=== PATIENT | female | born 1970 | race American Indian/Alaskan Native ===

== ENCOUNTER 2018-01-13 21:32 | Emergency (ER) | payer OTHER ==
[2018-01-13] MEDS ORDERED: ASPIRIN PO ONE (21:45)
[2018-01-13 22:01] LABS: Basophils # (Auto) 0.1 K/mm3 (0.0-0.1); Eosinophils # (Auto) 0.1 K/mm3 (0.0-0.4); Eosinophils % (Auto) 0.9 % (0.0-4.3); Hematocrit 40.2 % (30.3-42.9); Hemoglobin 13.7 gm/dl (10.1-14.3); Lymphocytes # (Auto) 2.7 K/mm3 (1.2-5.4); Mean Corpuscular HGB Conc 34 % (30-34); Mean Corpuscular Hemoglobin 28 pg (28-32); Mean Corpuscular Volume 81 fl (79-97); Monocytes # (Auto) 0.7 K/mm3 (0.0-0.8); Monocytes % (Auto) 8.9 % (0.0-7.3); Platelet Count 371 K/mm3 (140-440); Red Blood Count 4.98 M/mm3 (3.65-5.03); Red Cell Distribution Width 14.7 % (13.2-15.2)
[2018-01-13 22:18] LABS: BUN/Creatinine Ratio 14; Blood Urea Nitrogen 14 mg/dL (7-17); Calcium 9.8 mg/dL (8.4-10.2); Hemolysis Index 11
--- NOTE | 2018-01-13 22:47 | XRay Report ---
FINAL REPORT PROCEDURE: Chest. TECHNIQUE: PA and lateral views. HISTORY: Chest pain, shortness of breath. COMPARISON: No prior studies are available for comparison. FINDINGS: The heart and mediastinum appear normal. The lungs are clear and well expanded. There are no pleural effusions. The soft tissues and regional skeleton are unremarkable. IMPRESSION: Normal study.
[2018-01-14] MEDS ORDERED: NACL 0.9% 1000 ML 1,000 ML IV ONE (00:04)
[2018-01-14] MEDS ORDERED: SOLU-Medrol IV ONE (00:04)
[2018-01-14] MEDS ORDERED: ROBITUSSIN AC PO ONE (00:04)
[2018-01-14] MEDS ORDERED: DUONEB *Not for PRN Use IH ONE (00:04)
--- NOTE | 2018-01-14 00:07 | Emergency Department Report ---
ED Chest Pain HPI - General Chief Complaint: Chest Pain Stated Complaint: SOB Time Seen by Provider: 01/13/18 23:55 Source: patient Mode of arrival: Ambulatory Limitations: No Limitations - History of Present Illness Initial Comments: 47-year-old female presents to the emergency department with complaint of some midsternal chest pain with radiation towards the back that started earlier today. Patient is also dealing with a 2 week history of some intermittent shortness of breath, a mixed dry and productive cough and sinus pressure. She saw her primary care physician when this all started, Dr. Clancy. She has a past medical history of asthma, GERD, hypertension, elevated cholesterol. Patient tried her inhaler and some aspirin today for symptoms without much relief. No recent travel or sick contacts at home. She denies any family history of early cardiac disease or cardiac events. - Related Data Previous Rx's Medication Instructions Recorded Last Taken Type Benzonatate [Tessalon Perle] 100 mg PO TID PRN #30 capsule 04/16/13 Unknown Rx Hydrochlorothiazide 25 mg PO DAILY #60 tablet 04/16/13 Unknown Rx Albuterol Sulfate [Ventolin HFA] 2 puff IH Q4H PRN #1 hfa.aer.ad 01/14/18 Unknown Rx guaiFENesin/CODEINE [Robitussin AC] 5 ml PO Q6H PRN #100 ml 01/14/18 Unknown Rx predniSONE [Deltasone] 20 mg PO BID #10 tab 01/14/18 Unknown Rx Allergies Allergy/AdvReac Type Severity Reaction Status Date / Time No Known Allergies Allergy Verified 04/15/13 23:25 Heart Score - HEART Score History: Slightly suspicious EKG: Normal Age: 45-65 Risk factors: 1-2 risk factors Troponin: < normal limit HEART Score: 2 - Critical Actions Critical Actions: 0-3 pts:0.9-1.7%risk of adverse cardiac event.Candidate for discharge ED Review of Systems ROS: Stated complaint: SOB Other details as noted in HPI Comment: All other systems reviewed and negative Constitutional: denies: chills, fever Eyes: denies: eye pain, eye discharge, vision change ENT: denies: ear pain, throat pain Respiratory: cough, shortness of breath, wheezing Cardiovascular: chest pain. denies: edema Gastrointestinal: denies: abdominal pain, nausea, diarrhea Genitourinary: denies: urgency, dysuria, discharge Musculoskeletal: denies: back pain, joint swelling, arthralgia Skin: denies: rash, lesions Neurological: denies: headache, weakness, paresthesias ED Past Medical Hx - Past Medical History Hx Hypertension: Yes Hx GERD: Yes Hx Asthma: Yes Additional medical history: Sciatica,elevated cholesterol - Surgical History Additional Surgical History: Tubal ligation - Social History Smoking Status: Never Smoker Substance Use Type: Alcohol - Medications Home Medications: Home Medications Medication Instructions Recorded Confirmed Last Taken Type Benzonatate [Tessalon Perle] 100 mg PO TID PRN #30 capsule 04/16/13 Unknown Rx Hydrochlorothiazide 25 mg PO DAILY #60 tablet 04/16/13 Unknown Rx Albuterol Sulfate [Ventolin HFA] 2 puff IH Q4H PRN #1 hfa.aer.ad 01/14/18 Unknown Rx guaiFENesin/CODEINE [Robitussin AC] 5 ml PO Q6H PRN #100 ml 01/14/18 Unknown Rx predniSONE [Deltasone] 20 mg PO BID #10 tab 01/14/18 Unknown Rx ED Physical Exam - General Limitations: No Limitations - Other Other exam information: GENERAL: The patient is well-developed well-nourished. HENT: Normocephalic. Atraumatic. Patient has moist mucous membranes. EYES: Extraocular motions are intact. Pupils equal reactive to light bilaterally. NECK: Supple. Trachea is midline. CHEST/LUNGS: There is mild wheezing throughout the chest. There is a wheezing bronchospastic cough heard during examination. No tachypnea or accessory muscle use. There is no respiratory distress noted. HEART/CARDIOVASCULAR: Regular. There is very mild tachycardia. There is no murmur. ABDOMEN: Abdomen is soft, nontender. Patient has normal bowel sounds. There is no abdominal distention. SKIN: Skin is warm and dry. NEURO: The patient is awake, alert, and oriented. The patient is cooperative. The patient has no focal neurologic deficits. The patient has normal speech. MUSCULOSKELETAL: There is no tenderness or deformity. There is no limitation range of motion. There is no evidence of acute injury. ED Course Vital Signs 01/13/18 01/13/18 01/14/18 21:40 23:56 00:02 Temperature 98 F Pulse Rate 116 H 86 Pulse Rate [ Right Lower Lobe] Respiratory 18 18 17 Rate Respiratory Rate [Right Lower Lobe] Blood Pressure 115/80 O2 Sat by Pulse 100 100 Oximetry 01/14/18 01/14/18 01/14/18 00:15 00:16 00:31 Temperature Pulse Rate 78 78 75 Pulse Rate [ Right Lower Lobe] Respiratory 18 11 L 16 Rate Respiratory Rate [Right Lower Lobe] Blood Pressure 95/72 95/72 95/72 O2 Sat by Pulse 100 100 99 Oximetry 01/14/18 01/14/18 01/14/18 00:45 00:54 01:01 Temperature Pulse Rate 70 67 Pulse Rate [ 62 Right Lower Lobe] Respiratory 26 H 21 Rate Respiratory 18 Rate [Right Lower Lobe] Blood Pressure 95/72 131/68 O2 Sat by Pulse 98 98 Oximetry 01/14/18 01/14/18 01/14/18 01:15 01:30 01:45 Temperature Pulse Rate 67 66 66 Pulse Rate [ Right Lower Lobe] Respiratory 22 24 15 Rate Respiratory Rate [Right Lower Lobe] Blood Pressure 131/68 129/63 129/63 O2 Sat by Pulse 94 98 98 Oximetry JUANA score - Juana Score Age > 65: (0) No Aspirin use within the Past 7 Days: (1) Yes 3 or more CAD Risk Factors: (0) No 2 or more Angina events in past 24 hrs: (1) Yes (if pain is considered angina) Known CAD with more than 50% Stenosis: (0) No Elevated Cardiac Markers: (0) No ST Deviation Greater than 0.5mm: (0) No JUANA Score: 2 ED Medical Decision Making - Lab Data Result diagrams: 01/13/18 21:46 01/13/18 21:46 - EKG Data -: EKG Interpreted by De EKG shows normal: sinus rhythm, axis, intervals, QRS complexes, ST-T waves Rate: normal - EKG Data When compared to previous EKG there are: previous EKG unavailable Interpretation: normal EKG - Radiology Data Radiology results: image reviewed interpreted by me: Chest x-ray does not show any acute process. There are no pleural effusions, obvious pneumonia and there is no pneumothorax. - Medical Decision Making Patient presents with a two-week history of some wheezing, coughing, congestion and a one-day history of some chest discomfort. EKG does not show any signs of ST elevation [place] or dysrhythmia. Chest x-ray does not show any pneumonia, pleural effusions, pneumothorax, focal consolidation or any other acute process. Patient's labs have been unremarkable including negative troponins 2 and a negative d-dimer. There is no leukocytosis, electrolyte abnormalities, renal insufficiency or glucose abnormalities. The patient does have some bronchospasm but does not appear to be in any respiratory distress. She was given a dose of steroids, Robitussin-AC for her cough and a breathing treatment. She was reevaluated multiple times over multiple hours and says she is feeling improved. There is no further chest discomfort and the wheezing has resolved. For all these reasons the patient appears safe for discharge home at this time and has been encouraged to follow up with her primary care physician. She will get a referral for cardiology. She has been given a prescription for cough medication, albuterol inhaler and steroids. She has been instructed to return to the emergency department immediately with any worsening of her symptoms or any acute distress. - Differential Diagnosis asthma, bronchitis, FL, PE, pneumonia Critical Care Time: No Critical care attestation.: If time is entered above; I have spent that time in minutes in the direct care of this critically ill patient, excluding procedure time. ED Disposition Clinical Impression: Bronchospasm Asthmatic bronchitis Qualifiers: Asthma severity: unspecified severity Asthma complication type: with acute exacerbation Chest pain Qualifiers: Chest pain type: unspecified Qualified Code(s): R07.9 - Chest pain, unspecified Disposition: DC-01 TO HOME OR SELFCARE Is pt being admited?: No Condition: Stable Instructions: Chest Pain (ED), Asthma (ED), Acute Bronchitis (ED), Bronchospasm (ED) Additional Instructions: Please follow-up with your primary care physician in the next few days. I have given you a referral for a local technology engineer, Dr. Rodney, to follow up regarding your chest pain. Return to the emergency department with any return of your chest pain, worsening of your symptoms, or with any acute distress. You have been prescribed a medication that is sedating and therefore should not be taken prior to driving, working, and responsible for children and in no way should be mixed with alcohol of any quantity. Prescriptions: Albuterol Sulfate [Ventolin HFA] 2 puff IH Q4H PRN #1 hfa.aer.ad PRN Reason: Shortness Of Breath guaiFENesin/CODEINE [Robitussin AC] 5 ml PO Q6H PRN #100 ml PRN Reason: Cough predniSONE [Deltasone] 20 mg PO BID #10 tab Referrals: BURTON CLANCY MD [Primary Care Provider] - 2-3 Days MAYRA RODNEY MD [Staff Physician] - 2-3 Days Forms: Work/School Release Form(ED) Time of Disposition: 02:36
[2018-01-14 01:57] VITALS: BP 129/63
== END 2018-01-14 03:23 | disposition home or self-care (01) ==
LOC: ED 21:32
DX: J20.9 Acute bronchitis, unspecified (principal); I10 Essential (primary) hypertension; K21.9 Gastro-esophageal reflux disease without esophagitis; J45.909 Unspecified asthma, uncomplicated; E78.00 Pure hypercholesterolemia, unspecified; Z98.51 Tubal ligation status
CPT/HCPCS: 36415; 71046; 80048; 84484; 85025; 85379; 93005; 93010; 94640; 96374; 99284; J2930; J7030; 96361